=== PATIENT | female | born 1990 | race American Indian/Alaskan Native ===

== ENCOUNTER 2020-12-30 19:29 | Emergency (ER) | payer OTHER, MEDICAID ==
[2020-12-30] MEDS ORDERED: Amoxicillin 500 MG Cap PO STA (20:10)
--- NOTE | 2020-12-30 20:14 | EDM.PDOC ---
ED HPI GENERAL MEDICAL PROBLEM - General Stated Complaint: SORE THROAT AND BLISTERS Time Seen by Provider: 12/30/20 19:30 Source of Information: Reports: Patient History Limitations: Reports: No Limitations - History of Present Illness INITIAL COMMENTS - FREE TEXT/NARRATIVE: Patient presented to the ED because of cough and cold, sore throat for 1 week. There is no fever, chills, body malaise. 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: Social & Family History - Family History Family Medical History: No Pertinent Family History - Caffeine Use Caffeine Use: Reports: Soda ED ROS ENT - Review of Systems Review Of Systems: See Below Constitutional: Reports: No Symptoms HEENT: Reports: Throat Pain Respiratory: Reports: Cough Cardiovascular: Reports: No Symptoms Endocrine: Reports: No Symptoms GI/Abdominal: Reports: No Symptoms : Reports: No Symptoms Musculoskeletal: Reports: No Symptoms Skin: Reports: No Symptoms Neurological: Reports: No Symptoms Psychiatric: Reports: No Symptoms ED EXAM, ENT - Physical Exam Exam: See Below Exam Limited By: No Limitations General Appearance: Alert, No Apparent Distress Eye Exam: Bilateral Eye: PERRL Ears: Normal External Exam, Normal Canal, Hearing Grossly Normal, Normal TMs Nose: Normal Inspection, Normal Mucousa, No Blood Mouth/Throat: Normal Inspection, Pharyngeal Erythema, Tonsillar Exudates Head: Atraumatic, Normocephalic Neck: Normal Inspection, Supple, Non-Tender, Full Range of Motion Respiratory/Chest: No Respiratory Distress, Lungs Clear, Normal Breath Sounds, No Accessory Muscle Use, Chest Non-Tender Cardiovascular: Normal Peripheral Pulses, Regular Rate, Rhythm, No Edema, No Gallop, No JVD, No Murmur GI/Abdominal: Normal Bowel Sounds, Soft, Non-Tender, No Organomegaly, No Distention, No Abnormal Bruit, No Mass, Pelvis Stable Back: Normal Inspection, Full Range of Motion Extremities: Normal Inspection, Normal Range of Motion, Non-Tender, No Pedal Edema, Normal Capillary Refill Neurological: Alert, Oriented, CN II-XII Intact, Normal Cognition Course - Vital Signs Text/Narrative:: amoxicillin 1000 mg PO x1 - Orders/Labs/Meds Meds: Medications Discontinued Medications Generic Name Dose Route Start Last Admin Trade Name Lanette PRN Reason Stop Dose Admin Amoxicillin 1,000 mg 12/30/20 20:10 12/30/20 20:18 Amoxicillin 500 Mg Cap PO 12/30/20 20:11 1,000 mg NOW STA Administration Departure - Departure Time of Disposition: 20:15 Disposition: Home, Self-Care 01 Condition: Good Clinical Impression: Exudative pharyngitis - Discharge Information Prescriptions: Amoxicillin 875 mg PO BID #20 tablet Instructions: Pharyngitis Additional Instructions: Please read discharge instructions on exudative pharyngitis Gurgle with salt and water Take amoxicillin 875 mg twice daily for 10 days Follow up as needed
[2020-12-30 22:13] VITALS: BP 122/84; PULSE 87
== END 2020-12-30 20:20 | disposition home or self-care (01) ==
LOC: FB.ED 19:29
DX: J02.9 Acute pharyngitis, unspecified (principal); Z88.5 Allergy status to narcotic agent
CPT/HCPCS: 99283; A9270

== ENCOUNTER 2024-05-07 07:43 | Day surgery (SDC) | payer BC, OTHER ==
[2024-05-07] MEDS ORDERED: Midazolam 1 MG/ML 2 ML SDV IV ONE (07:44)
[2024-05-07] MEDS ORDERED: Ondansetron 4 MG/2 ML SDV IVPUSH ONE (07:44)
[2024-05-07] MEDS ORDERED: Propofol 200 MG/20 ML SDV IV ONE (07:44)
[2024-05-07] MEDS ORDERED: Dexamethasone 4 MG/ML 5 ML MDV IVPUSH ONE (07:44)
[2024-05-07] MEDS ORDERED: Glycopyrrolate 0.2 MG/ML 5 ML MDV IV ONE (07:44)
[2024-05-07] MEDS ORDERED: Ketorolac 30 MG/ML SDV IVPUSH ONE (07:44)
[2024-05-07] MEDS ORDERED: Rocuronium 100 MG/10 ML MDV IV ONE (07:44)
[2024-05-07] MEDS ORDERED: fentaNYL 100 MCG/2 ML SDV IV ONE (07:44)
[2024-05-07] MEDS ORDERED: diphenhydrAMINE 50 MG/ML SDV IVPUSH ONE (07:44)
[2024-05-07] MEDS ORDERED: Neostigmine Methylsulfate 10 MG/10 ML MDV IVPUSH ONE (07:44)
[2024-05-07] MEDS ORDERED: Sodium Chloride 0.9% 10 ML Syringe FLUSH PRN (07:45)
[2024-05-07] MEDS: Gabapentin 300 MG Cap PO ONE (09:34)
[2024-05-07] MEDS: Acetaminophen 500 MG Tab PO ONE (09:34)
[2024-05-07] MEDS: Lactated Ringers 1,000 ML IV SCH (09:35)
[2024-05-07] MEDS: ceFAZolin 1 GM Vial IVPUSH ONE (09:36)
[2024-05-07] MEDS: Bupivacaine 0.5%/EPINEPHrine 1:200,000 30 ML SDV INJECT ONE (10:26)
[2024-05-07 12:06] VITALS: BP 107/67; PULSE 58
== END 2024-05-07 13:50 | disposition home or self-care (01) ==
LOC: FB.SDS 07:43
PROVIDERS: ATTEND Surgery
DX: K80.10 Calculus of gallbladder with chronic cholecystitis without obstruction (principal)
CPT/HCPCS: 81025; 88304; A9270-GY; J0690; J1100; J1200; J1596; J1885; J2250; J2405; J2704; J2710; J3010; J3490; J7120